=== PATIENT | female | born 1960 | race Caucasian/White ===

== ENCOUNTER → 2017-12-11 09:39 | Outpatient (CLI) | payer BC, SELFPAY ==
--- NOTE | 2017-12-11 09:43 | CT_ITS ---
CT abdomen pelvis w con CLINICAL INDICATION: Diarrhea, weight loss ITS.REASON: ABD PAIN, WGT LOSS ORDERING PHYSICIAN: Carlos Navas MD PATIENT AGE: 57 years COMPARISON: TECHNIQUE: Axial images obtained with sagittal and coronal reformats. All CT scans at the facility use one or more dose reduction, viz: automated exposure control; ma/kV adjustment per patient size (including targeted exams where dose is matched to indication; i.e. head); or iterative reconstruction technique. PROCEDURE: Oral Contrast: Gastroview IV Contrast: 75 mL's of Isovue-370. FINDINGS: No acute findings lower chest. There are 3 isodensity is within the liver 2 in the lateral segment left hepatic lobe and one in the inferior tip of the right hepatic lobe consistent with small cyst measuring up to 7 mm. The spleen, adrenal glands, and pancreas have an unremarkable appearance. No hydronephrosis. Mild prominence of the right renal pelvis versus a parapelvic renal cyst. There are 2 nonobstructing stones in the lower pole the left kidney the largest 4 mm. Unremarkable appendix. There is mild thickening of the antrum of the stomach and fundus of the stomach. This could be related to nondistention. Please correlate with recent endoscopy. No intestinal obstruction or free air. No evidence of diverticulitis. There is mild thickening of the sigmoid and rectosigmoid colon nonspecific. Small amount fluid is present in the pelvis. As the prior hysterectomy. No acute bony anomalies. IMPRESSION: 1. Mild thickening of the rectosigmoid aspect of the colon which may be related to colitis with a small amount fluid in the pelvis. 2. Mild thickening of the antrum and fundus of the stomach which could be related to nondistention. Please correlate with recent endoscopy 3. Probable hepatic cyst 4. Left nephrolithiasis
== END ==
PROVIDERS: PCP Physician Assistant; Visit Provider Internal Medicine Gastroenterology
DX: R63.4 Abnormal weight loss (principal); R10.9 Unspecified abdominal pain; K92.1 Melena
CPT/HCPCS: 74177; Q9967

== ENCOUNTER → 2020-03-08 12:03 | Outpatient (CLI) | payer OTHER, SELFPAY ==
[2020-03-08 15:15] LABS: Coronavirus 19 IgG Antibody Negative (Negative); Coronavirus 19 IgM Antibody Negative (Negative)
== END ==
PROVIDERS: Visit Provider Internal Medicine Gastroenterology
DX: R10.10 Upper abdominal pain, unspecified (principal); R11.0 Nausea; R19.7 Diarrhea, unspecified
CPT/HCPCS: 36415; 86328

== ENCOUNTER 2020-03-10 08:06 | Day surgery (SDC) | payer OTHER, SELFPAY ==
[2020-03-06 15:54] VITALS: BMI 25.8
[2020-03-10] VITALS (7 sets, daily range): BP systolic 86–119; BP diastolic 37–79; PULSE 72–83; RESP 16–18; TEMP 36.4–37; O2SAT 97–100
--- NOTE | 2020-03-10 08:49 | P.PN_ITS ---
[facility] Anesthesia Checklist - Patient Identification Patient Identification: Arm Band - Structural Data Admitted From: Home Planned Operative Procedure/s: egd/colonoscopy Consent for Planned Operative Procedure(s) Verified: Yes Verified Documents: Surgical Consent, History and Physical - NPO Status Verified Time NPO: 00:00 - Additional verifications Anesthesia Reactions: No - Airway Assessment C-Spine Mobility Assessed: Yes (mp2) TMJ Mobility Assessed: Yes Dentition: Good Dentition - Neurological Assessment Level of Consciousness: Awake, Alert - Anesthesia Plan Anesthesia Risk discussed: Yes Anesthesia Plan: Verified ASA Class: II Anesthesia Type: MAC [facility] History I have reviewed the patient's past medical history: Yes Medical History: Reports:: Coronary Artery Disease, Hyperlipidemia Denies:: Cancer, Diabetes Mellitus Type 1, Diabetes Mellitus Type 2, Internal Pacemaker, Lung Disease, MRSA, Seizures *Have you ever received a pneumonia vaccine?: No *Have you received a flu vaccine this season?: Yes Anesthesia experience/problems:: nac Laterality Cases: Bilateral: Tonsillectomy Other Surgeries: Yes: , Hysterectomy-Total. No: Pacemaker Amputation: No Fractures: No - *Social History Last grade of school completed: Advanced degree Smoking Status: Never smoker Alcohol Intake: never Substance Use Type: denies use *Occupational Status:: employed Housing: house Household Members: significant other *Travel in the last 8 weeks: None Family Hx:: No significant family history
--- NOTE | 2020-03-10 09:16 | HMH.PROC ---
[facility] Procedure Note Procedure Note:: Upper Endoscopy Procedure Report: Esophagogastroduodenoscopy with cold biopsies and TTS balloon dilation Endoscopost: Carlos Navas II, MD Referring Physician: Susan Agustin PA-C Date of Procedure: March 10, 2020 Equipment: Olympus GIF 180 standard upper endoscope Sedation: MAC sedation Indications: Mrs. Montemayor is a 59-year-old female with symptomatic nausea, early satiety, gassiness and bloating. She was having diarrhea that was constant. More recently she has a bowel movement every 2 or 3 days. The patient did have an EGD in November 2017 and had pyloric channel stenosis. She had dilation of the pylorus to 12 mm. The patient does have some pain across the epigastrium. Some of this has improved. She reports no melena, heartburn or reflux. Procedure: Prior to the procedure, a history and physical exam was performed, and patient's medications and allergies were reviewed. The risks, benefits and alternatives of the sedation and procedure were discussed with the patient. All questions were answered and informed consent was obtained. The patient was brought to the procedure room. Patient identification and proposed procedure were verified by the physician and the nurse. The patient was placed in a left lateral decubitus position and the scope was passed under direct vision. Throughout the procedure, the patient's blood pressure, pulse, and oxygen saturations were monitored continuously. The upper GI endoscopy was accomplished without difficulty. The patient tolerated the procedure well. Findings: The scope was passed directly into the upper esophagus and advanced to the pylorus. There was prepyloric superficial ulceration and pyloric stenosis. The upper endoscope could not be advanced into the bulb or post bulbar duodenum. The diameter was less than 8 mm. The pylorus was dilated using a wire-guided TTS balloon dilator up to 11 mm with a TTS hydrostatic balloon. Even after dilation, the scope still had difficulty advancing to the post bulbar duodenum. There was no retained food within the stomach. There was some mild gastric atrophy. Cold biopsies were taken from the stomach to rule out H. pylori. Upon retroflexion there was a 2 cm hiatal hernia. The scope was withdrawn into the esophagus. There was a single tongue of salmon-colored mucosa that was biopsied to rule out intestinal metaplasia/Fong's. There were tertiary contractions and evidence of mild dysmotility. Impression: 1. 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 Prepyloric gastric superficial ulceration?rule out NSAID gastropathy 3. Nonerosive GERD with small 2 cm hiatal hernia and mild esophageal dysmotility Plan: I will follow-up the biopsies. I am concerned this may represent NSAID gastropathy. I am going to recommend misoprostol 3 times daily. I would also continue PPI therapy. I will proceed with colonoscopy.
--- NOTE | 2020-03-10 09:39 | P.PCN_ITS ---
[facility] Procedure Note Procedure Note:: Colonoscopy Procedure Report: Colonoscopy with cold biopsies Endoscopist: Carlos Navas II, MD Referring physician: Susan Agustin PA-C Date of Procedure: March 10, 2020 Equipment: Olympus 180 variable stiffness pediatric colonoscope Sedation: MAC sedation Indication: Mrs. Montemayor is a 59-year-old female who is here for diagnostic colonoscopy. The patient has had upper abdominal pain. She also has had intermittent diarrhea. The diarrhea has improved over the last couple of months and now she has a bowel movement every 2 to 3 days. She reports no rectal bleeding or weight loss. She does have moderate bloating and gassiness. She has had nausea and early satiety. The patient did have a colonoscopy in November 2017 and had a single diminutive transverse polyp removed at that time (tubular adenoma x1). Procedure: Prior to the procedure, a history and physical exam was performed, and patient's medications and allergies were reviewed. The risks, benefits and alternatives of the sedation and procedure were discussed with the patient. All questions were answered and informed consent was obtained. The patient was brought to the procedure room. Patient identification and proposed procedure were verified by the physician and the nurse. The patient was placed in a left lateral decubitus position and the scope was passed under direct vision. Throughout the procedure, the patient's blood pressure, pulse, and oxygen saturations were monitored continuously. The colonoscopy was accomplished without difficulty. The patient tolerated the procedure well. Findings: On digital rectal examination there was normal rectal tone. There were no external hemorrhoids. The colonoscope was introduced through the anal canal to the rectum and advanced to the cecum. The ileocecal valve and appendiceal orifice were identified. The scope was advanced a short distance into the ileum which appeared grossly normal. The scope was then withdrawn into the colon. The cecum, ascending, transverse, descending, sigmoid and rectum were grossly normal. Cold biopsies were taken from the right colon to rule out microscopic colitis. There were no mucosal abnormalities identified. Upon retroflexion within the rectum there were grade 1 internal hemorrhoids.The preparation was excellent throughout with Reeders Preparation Score of 9. The cecal time was 10 minutes. Impression: 1. Normal colonoscopy with intubation of the terminal ileum Plan: I will follow-up the biopsies. I do feel that the patient has irritable bowel syndrome. I would recommend the patient undergo sucrose C 13 breath testing. We will discuss treatment options.
== END 2020-03-10 10:37 | disposition home or self-care (01) ==
LOC: OUTP 08:07
PROVIDERS: PCP Physician Assistant; Visit Provider Internal Medicine Gastroenterology
PROC: 0DJ08ZZ Inspection of Upper Intestinal Tract, Via Natural or Artificial Opening Endoscopic (ICD-10-PCS; CPT 43235; principal; 2020-03-10 09:00)
DX: K31.1 Adult hypertrophic pyloric stenosis (principal); K44.9 Diaphragmatic hernia without obstruction or gangrene; K25.9 Gastric ulcer, unspecified as acute or chronic, without hemorrhage or perforation; K22.2 Esophageal obstruction; K21.9 Gastro-esophageal reflux disease without esophagitis; K64.0 First degree hemorrhoids; R19.7 Diarrhea, unspecified; R10.10 Upper abdominal pain, unspecified; R19.4 Change in bowel habit; Z86.010 Personal history of colon polyps; Z87.19 Personal history of other diseases of the digestive system; R14.0 Abdominal distension (gaseous)
CPT/HCPCS: 43239; 43245; 45380; C1726